=== PATIENT | female | born 1955 | race Caucasian/White ===

== ENCOUNTER → 2021-03-17 | Outpatient (CLI) | payer BC ==
[~2021-03-17] MED LIST: DICLOFONO2.5 GM TP; PANTOPRAZOLE SO40 MG PO; VITAMIN D31250 MCG PO
== END ==
LOC: HEART 5 10:19
DX: R00.2 Palpitations (principal)

== ENCOUNTER → 2021-06-30 | Outpatient (CLI) | payer BC | LOC: HEART 5 08:30 | DX: I47.2 Ventricular tachycardia (principal); R00.2 Palpitations; I47.1 Supraventricular tachycardia ==

== ENCOUNTER → 2021-09-01 | Outpatient (CLI) | payer BC | LOC: HEART 5 08:08 | DX: I48.0 Paroxysmal atrial fibrillation (principal) | CPT/HCPCS: 93306 ==